=== PATIENT | male | born 1980 | race Caucasian/White ===

== ENCOUNTER 2016-10-08 11:50 | Emergency (ER) | payer OTHER ==
[~2016-10-08] VITALS: Ht 167.6 cm; Wt 100.0 kg
[~2016-10-08 11:50] MED LIST: ADVA250A INH; ALBUAER3 INH; NEXI40CA PO
[2016-10-08 11:53] VITALS: BP 134/82; PULSE 70; RESP 16; TEMP 97.8; O2SAT 97
--- NOTE | 2016-10-08 12:24 | PD ---
HPI Chief Complaint: Cardiac Complaint Time Seen by Provider: 12:24 Travel History International Travel<30 days: No Contact w/Intl Traveler<30days: No Traveled to known affect area: No History of Present Illness HPI 36-year-old male with history of asthma, sleep apnea, hiatal hernia, presents to emergency department for evaluation of chest pain. Patient states the last couple nights he has not been able to breathe while lying flat. He states even gets worse when he is on his left side. He contact his primary care provider who advised that he come to the emergency department. Patient states associated with this there has been an epigastric pain that radiates to his back , primarily on the left side. He has no cardiac history. She does have an uncle with significant cardiac history. No recent illnesses, fever, chills. No other symptoms to report at this time. PFSH Past Medical History Asthma: Yes Hiatal Hernia: Yes Psychiatric: Yes (PTSD) Respiratory: Yes (ASTHMA) Social History Alcohol Use: No (PT DENIES) Tobacco Use: No Substance Use: No (PT DENIES) Allergies-Medications (Allergen,Severity, Reaction): Coded Allergies: Shrimp (Verified Allergy, Severe, Anaphylaxis, 10/08/16) Gluten (Verified Allergy, Intermediate, 10/08/16) abdominal pain Reported Meds & Prescriptions Reported Meds & Active Scripts Active Reported Dicyclomine (Dicyclomine HCl) 10 Mg Cap 10 Mg PO BID Symbicort Inh (Budesonide/Formoterol Fumarate) 80-4.5 Mcg/Act Aero 2 Puff INH DAILY Nexium (Esomeprazole DR) 40 Mg Capdr 40 Mg PO DAILY Proair Hfa 8.5 GM Inh (Albuterol Sulfate) 90 Mcg/Act Aer 1 Puff INH Q4H PRN 108 mcg/actuation Review of Systems Except as stated in HPI: all other systems reviewed are Neg Physical Exam Narrative GENERAL: Well-nourished male patient, ambulatory no acute distress SKIN: Warm and dry. HEAD: Atraumatic. Normocephalic. EYES: Pupils equal and round. No scleral icterus. No injection or drainage. ENT: No nasal bleeding or discharge. Mucous membranes pink and moist. NECK: Trachea midline. No JVD. CARDIOVASCULAR: Regular rate and rhythm. No murmur appreciated. RESPIRATORY: No accessory muscle use. Clear to auscultation. Breath sounds equal bilaterally. GASTROINTESTINAL: Abdomen soft, non-tender, nondistended. Hepatic and splenic margins not palpable. MUSCULOSKELETAL: No obvious deformities. No clubbing. No cyanosis. No edema. NEUROLOGICAL: Awake and alert. No obvious cranial nerve deficits. Motor grossly within normal limits. Normal speech. PSYCHIATRIC: Appropriate mood and affect; insight and judgment normal. Data Data Last Documented VS Vital Signs Date Time Temp Pulse Resp B/P Pulse Ox O2 Delivery O2 Flow Rate FiO2 10/08/16 12:47 60 20 97 Room Air 10/08/16 11:53 97.8 134/82 Orders Electrocardiogram (10/08/16 ) Basic Metabolic Panel (Bmp) (10/08/16 12:21) B-Type Natriuretic Peptide (10/08/16 12:21) Ckmb (Isoenzyme) Profile (10/08/16 12:21) Complete Blood Count With Diff (10/08/16 12:21) D-Dimer (10/08/16 12:21) Magnesium (Mg) (10/08/16 12:21) Prothrombin Time / Inr (Pt) (10/08/16 12:21) Act Partial Throm Time (Ptt) (10/08/16 12:21) Troponin I (10/08/16 12:21) Lipase (10/08/16 12:21) Chest, Single Ap (10/08/16 12:21) Aspirin Chew (Aspirin Chew) (10/08/16 12:30) CKMB (10/08/16 11:20) CKMB% (10/08/16 11:20) Labs Laboratory Tests Test 10/08/16 11:20 White Blood Count 5.2 TH/MM3 Red Blood Count 5.33 MIL/MM3 Hemoglobin 16.0 GM/DL Hematocrit 46.5 % Mean Corpuscular Volume 87.3 FL Mean Corpuscular Hemoglobin 29.9 PG Mean Corpuscular Hemoglobin 34.3 % Concent Red Cell Distribution Width 12.7 % Platelet Count 243 TH/MM3 Mean Platelet Volume 7.4 FL Neutrophils (%) (Auto) 54.1 % Lymphocytes (%) (Auto) 30.3 % Monocytes (%) (Auto) 8.5 % Eosinophils (%) (Auto) 6.2 % Basophils (%) (Auto) 0.9 % Neutrophils # (Auto) 2.8 TH/MM3 Lymphocytes # (Auto) 1.6 TH/MM3 Monocytes # (Auto) 0.4 TH/MM3 Eosinophils # (Auto) 0.3 TH/MM3 Basophils # (Auto) 0.0 TH/MM3 CBC Comment DIFF FINAL Differential Comment Prothrombin Time 10.8 SEC Prothromb Time International 1.0 RATIO Ratio Activated Partial 26.5 SEC Thromboplast Time D-Dimer Quantitative (PE/DVT) LESS THAN 0.19 MG/L FEU Sodium Level 140 MEQ/L Potassium Level 3.8 MEQ/L Chloride Level 105 MEQ/L Carbon Dioxide Level 25.6 MEQ/L Anion Gap 9 MEQ/L Blood Urea Nitrogen 12 MG/DL Creatinine 1.11 MG/DL Estimat Glomerular Filtration 75 ML/MIN Rate Random Glucose 69 MG/DL Calcium Level 9.1 MG/DL Magnesium Level 2.1 MG/DL Total Creatine Kinase 260 U/L Creatine Kinase MB 2.3 NG/ML Troponin I LESS THAN 0.02 NG/ML B-Type Natriuretic Peptide 10 PG/ML Lipase 111 U/L MDM Medical Decision Making Medical Screen Exam Complete: Yes Emergency Medical Condition: Yes Medical Record Reviewed: Yes Differential Diagnosis ACS versus chest wall pain versus indigestion versus pancreatitis versus pneumonia Narrative Course 36-year-old male presents to emergency department for evaluation of chest pain and short is a breath with lying flat and on his left side. Workup was initiated in the triage area. Once a medical bed becomes available, patient will be transferred and care assumed by the provider. Condition: Stable Cathleen Valdovinos Oct 08, 2016 12:24
[2016-10-08] MEDS ORDERED: ASPIRIN 81 MG CHEW TAB PO ONE (12:30)
[2016-10-08 12:36] LABS: AUTOMATED NEUTROPHIL # 2.8 TH/MM3 (1.8-7.7); BASOPHIL % 0.9 % (0.0-2.0); EOSINOPHIL # 0.3 TH/MM3 (0-0.4); EOSINOPHIL % 6.2 % (0.0-4.0); HEMATOCRIT 46.5 % (39.0-51.0); HEMO FLAGS DIFF FINAL; LYMPH % 30.3 % (9.0-44.0); LYMPHOCYTE # 1.6 TH/MM3 (1.0-4.8); MEAN CELL VOLUME 87.3 FL (80.0-100.0); MEAN CORPUSCULAR HEMOGLOBIN 29.9 PG (27.0-34.0); MEAN CORPUSCULAR HGB CONC 34.3 % (32.0-36.0); MONO % 8.5 % (0.0-8.0); NEUT % 54.1 % (16.0-70.0); PLATELET COUNT 243 TH/MM3 (150-450); RED BLOOD COUNT 5.33 MIL/MM3 (4.50-5.90); RED CELL DISTRIBUTION WIDTH 12.7 % (11.6-17.2); WHITE BLOOD COUNT 5.2 TH/MM3 (4.0-11.0)
[2016-10-08] MEDS ORDERED: DICY10CA12 PO (12:46)
[2016-10-08] MEDS ORDERED: SYMB80AE INH (12:46)
[2016-10-08 12:50] VITALS: BP 150/70; PULSE 71; RESP 20; O2SAT 98
[2016-10-08 12:52] LABS: ANION GAP 9 MEQ/L (5-15); BICARBONATE 25.6 MEQ/L (21.0-32.0); BLOOD UREA NITROGEN 12 MG/DL (7-18); CHLORIDE 105 MEQ/L (98-107); GLOMERULAR FILTRATION RATE 75 ML/MIN (>89); MAGNESIUM 2.1 MG/DL (1.5-2.5); POTASSIUM 3.8 MEQ/L (3.5-5.1); SODIUM (NA) 140 MEQ/L (136-145)
[2016-10-08 12:54] LABS: APTT (PATIENT) 26.5 SEC (24.3-30.1); PROTHROMBIN TIME - PATIENT 10.8 SEC (9.8-11.6)
[2016-10-08 13:08] LABS: CREATINE KINASE 260 U/L (39-308)
[2016-10-08 13:21] LABS: CKMB 2.3 NG/ML (0.5-3.6)
--- NOTE | 2016-10-08 13:22 | RADRPT ---
EXAM DATE/TIME: 10/08/2016 12:54 [facility] COMPARISON: No previous studies available for comparison. INDICATIONS : Chest pain, short of breath. MEDICAL HISTORY : None. SURGICAL HISTORY : Hiatal hernia sx. ENCOUNTER: Initial ACUITY: 2 days PAIN SCORE: 5/10 LOCATION: chest FINDINGS: A single view of the chest demonstrates the lungs to be symmetrically aerated without evidence of mas s, infiltrate or effusion. The cardiomediastinal contours are unremarkable. Osseous structures are intact. CONCLUSION: Normal examination. Brooks Martin MD on October 08, 2016 at 13:21 Board Certified Radiologist. This report was verified electronically.
--- NOTE | 2016-10-08 13:26 | PD ---
Physical Exam Narrative 36yo M with PMH of sleep apnea on CPAP machine at night, asthma, hiatal hernia presents to the ED with c/o difficulty breathing when he lies down at night for a few weeks. Had associated chest tightness for a few weeks but mainly here for his sob. Pt had endoscopy and colonscopy 5 days ago that showed mucosal inflammation in stomach where they took biopsy. Pt denies any n/v, fever, abdominal pain, focal weakness or numbness. Pt had seen a director card and a caustic operator last March and had negative cardiac work up. Labs reviewed, no leukocytosis. Troponin negative. Lipase normal. Glucose 69, pt tolerating PO , given juice. D-dimer negative. CXR negative. Pt did have mild epigastric/ LUQ pain but has omeprazole at home and had recent endoscopy that he will follow up with. Pt has caustic operator to follow up with . Pt is nontoxic appearing and saturating at 97% on RA with no retractions. Pt is speaking in complete sentences. Data Data Last Documented VS Vital Signs Date Time Temp Pulse Resp B/P Pulse Ox O2 Delivery O2 Flow Rate FiO2 10/08/16 12:47 60 20 97 Room Air 10/08/16 11:53 97.8 134/82 Orders Electrocardiogram (10/08/16 ) Basic Metabolic Panel (Bmp) (10/08/16 12:21) B-Type Natriuretic Peptide (10/08/16 12:21) Ckmb (Isoenzyme) Profile (10/08/16 12:21) Complete Blood Count With Diff (10/08/16 12:21) D-Dimer (10/08/16 12:21) Magnesium (Mg) (10/08/16 12:21) Prothrombin Time / Inr (Pt) (10/08/16 12:21) Act Partial Throm Time (Ptt) (10/08/16 12:21) Troponin I (10/08/16 12:21) Lipase (10/08/16 12:21) Chest, Single Ap (10/08/16 12:21) Aspirin Chew (Aspirin Chew) (10/08/16 12:30) CKMB (10/08/16 11:20) CKMB% (10/08/16 11:20) Labs Laboratory Tests Test 10/08/16 11:20 White Blood Count 5.2 TH/MM3 Red Blood Count 5.33 MIL/MM3 Hemoglobin 16.0 GM/DL Hematocrit 46.5 % Mean Corpuscular Volume 87.3 FL Mean Corpuscular Hemoglobin 29.9 PG Mean Corpuscular Hemoglobin 34.3 % Concent Red Cell Distribution Width 12.7 % Platelet Count 243 TH/MM3 Mean Platelet Volume 7.4 FL Neutrophils (%) (Auto) 54.1 % Lymphocytes (%) (Auto) 30.3 % Monocytes (%) (Auto) 8.5 % Eosinophils (%) (Auto) 6.2 % Basophils (%) (Auto) 0.9 % Neutrophils # (Auto) 2.8 TH/MM3 Lymphocytes # (Auto) 1.6 TH/MM3 Monocytes # (Auto) 0.4 TH/MM3 Eosinophils # (Auto) 0.3 TH/MM3 Basophils # (Auto) 0.0 TH/MM3 CBC Comment DIFF FINAL Differential Comment Prothrombin Time 10.8 SEC Prothromb Time International 1.0 RATIO Ratio Activated Partial 26.5 SEC Thromboplast Time D-Dimer Quantitative (PE/DVT) LESS THAN 0.19 MG/L FEU Sodium Level 140 MEQ/L Potassium Level 3.8 MEQ/L Chloride Level 105 MEQ/L Carbon Dioxide Level 25.6 MEQ/L Anion Gap 9 MEQ/L Blood Urea Nitrogen 12 MG/DL Creatinine 1.11 MG/DL Estimat Glomerular Filtration 75 ML/MIN Rate Random Glucose 69 MG/DL Calcium Level 9.1 MG/DL Magnesium Level 2.1 MG/DL Total Creatine Kinase 260 U/L Creatine Kinase MB 2.3 NG/ML Troponin I LESS THAN 0.02 NG/ML B-Type Natriuretic Peptide 10 PG/ML Lipase 111 U/L [facility] Supervised Visit with WILLIAN: Yes Interpretation(s) EKG: NSR 70bpm. Normal axis. TWI III. No ST segment elevation or depression. Diagnosis Primary Impression: Sleep apnea Qualified Code: G47.30 - Sleep apnea, unspecified type Patient Instructions: General Instructions Departure Forms: Tests/Procedures Additional Instruction: Please follow up with your caustic operator for further work up of your shortness of breath. Return to the ED if symptoms worsen. Med/Other Pt SpecificInfo: No Change to Meds Disposition: 01 DISCHARGE HOME Condition: Stable Annie Mastjaspreet MEYER Oct 08, 2016 13:26
[2016-10-08 15:18] VITALS: BP 155/72
--- NOTE | 2016-10-09 16:09 | EKG ---
Date Performed: 10/08/2016 Time Performed: 12:18:17 PTAGE: 36 years EKG: Sinus rhythm INCOMPLETE RIGHT BUNDLE BRANCH BLOCK BORDERLINE ECG NO PREVIOUS TRACING DOCTOR: Manny Dickerson Interpretating Date/Time 10/09/2016 16:08:28
== END 2016-10-08 15:19 | disposition home or self-care (01) ==
LOC: NEPA 11:50
DX: G47.30 Sleep apnea, unspecified (principal); R06.02 Shortness of breath; R94.31 Abnormal electrocardiogram [ECG] [EKG]; J45.909 Unspecified asthma, uncomplicated
CPT/HCPCS: 71010; 80048; 82550; 82552; 83690; 83735; 83880; 84484; 85025; 85379; 85610; 85730; 93005

== ENCOUNTER 2018-02-05 13:48 | Emergency (ER) | payer OTHER, MEDICARE ==
[~2018-02-05] VITALS: Ht 167.6 cm; Wt 98.0 kg
[~2018-02-05 13:48] MED LIST changes: -ADVA250A INH; -ALBUAER3 INH; +IBUP1TAB7 PO; -NEXI40CA PO; +PERC7.5T13 PO
[2018-02-05 15:09] VITALS: BP 130/84; PULSE 83; RESP 16; TEMP 97.8; O2SAT 95
[2018-02-05 15:54] LABS: AUTOMATED NEUTROPHIL # 2.7 TH/MM3 (1.8-7.7); BASOPHIL # 0.1 TH/MM3 (0-0.2); BASOPHIL % 0.9 % (0.0-2.0); EOSINOPHIL # 0.4 TH/MM3 (0-0.4); EOSINOPHIL % 8.1 % (0.0-4.0); HEMOGLOBIN 16.3 GM/DL (13.0-17.0); LYMPH % 33.7 % (9.0-44.0); LYMPHOCYTE # 1.8 TH/MM3 (1.0-4.8); MEAN CELL VOLUME 88.3 FL (80.0-100.0); MEAN CORPUSCULAR HEMOGLOBIN 29.9 PG (27.0-34.0); MEAN CORPUSCULAR HGB CONC 33.9 % (32.0-36.0); MEAN PLATELET VOLUME 7.5 FL (7.0-11.0); MONO % 7.4 % (0.0-8.0); MONOCYTE # 0.4 TH/MM3 (0-0.9); NEUT % 49.9 % (16.0-70.0); PLATELET COUNT 287 TH/MM3 (150-450); RED BLOOD COUNT 5.44 MIL/MM3 (4.50-5.90); RED CELL DISTRIBUTION WIDTH 12.9 % (11.6-17.2); WHITE BLOOD COUNT 5.4 TH/MM3 (4.0-11.0)
[2018-02-05 16:07] LABS: ALBUMIN 3.9 GM/DL (3.4-5.0); AST (GOT) 34 U/L (15-37); BICARBONATE 28.5 MEQ/L (21.0-32.0); BLOOD UREA NITROGEN 14 MG/DL (7-18); CALCIUM 9.2 MG/DL (8.5-10.1); CHLORIDE 105 MEQ/L (98-107); CREATININE 1.08 MG/DL (0.60-1.30); GLOMERULAR FILTRATION RATE 77 ML/MIN (>89); GLUCOSE,RANDOM 84 MG/DL (74-106); SODIUM (NA) 141 MEQ/L (136-145)
[2018-02-05 16:08] LABS: ALT (GPT) 56 U/L (12-78)
[2018-02-05 16:10] LABS: ALKALINE PHOSPHATASE 60 U/L (45-117); TOTAL BILIRUBIN ADULT 0.6 MG/DL (0.2-1.0); TOTAL PROTEIN 7.7 GM/DL (6.4-8.2)
[2018-02-05 17:27] LABS: BLOOD, URINE NEG (NEG); GLUCOSE,URINE NEG (NEG); KETONE, URINE NEG (NEG); MUCUS URINE FEW /lpf (OCC); NITRITE,URINE POS (NEG); URINE LEUKOCYTE ESTERASE NEG (NEG)
[2018-02-05 17:32] LABS: URINE COLOR DARK-BROWN (YELLW/STRAW)
[2018-02-05] MEDS ORDERED: PANT40TA3 PO (17:34)
[2018-02-05] MEDS ORDERED: VENTAER INH (17:34)
[2018-02-05] MEDS ORDERED: SYMB80AE INH (17:34)
[2018-02-05 17:38] LABS: BILIRUBIN, URINE NEG (NEG)
[2018-02-05] MEDS ORDERED: KETOROLAC TROMETHAMINE 60 MG/2 ML (IM) VIAL IM ONE (17:45)
--- NOTE | 2018-02-05 18:46 | PD ---
HPI Chief Complaint: Complaint Time Seen by Provider: 17:23 Travel History International Travel<30 days: No Contact w/Intl Traveler<30days: No Traveled to known affect area: No History of Present Illness HPI The patient is a 37-year-old male who presents to the emergency department for right flank pain of 1-1/2 weeks duration. The patient states initially the pain was intermittent, has been constant over the last day. The pain is located over the mid right back and radiates to the right flank and right lower quadrant. He does note the pain is intermittent, sharp, but constant over the last 24 hours. He also complains of dark-colored urine earlier today, possibly with hematuria. He also states that he urinated what he thought was sand-like material. The patient saw his primary physician yesterday who ordered him an outpatient ultrasound. However, he was worried and presents to [facility] for further evaluation. He denies any history nephrolithiasis. He denies any fever, chills, or sweats. He denies any associated nausea, vomiting , diarrhea, change in bowel habits. Symptoms are moderate. PFSH Past Medical History Asthma: Yes Anxiety: Yes Depression: Yes Diminished Hearing: No Hiatal Hernia: Yes Psychiatric: Yes (PTSD) Respiratory: Yes (ASTHMA) Sleep Apnea: Yes (wears cpap at hs) Past Surgical History Abdominal Surgery: Yes (hernia repair) Oral Surgery: Yes (wisdom teeth removal) Other Surgery: Yes (liver bx) Social History Alcohol Use: No Tobacco Use: No Substance Use: No Allergies-Medications (Allergen,Severity, Reaction): Coded Allergies: shrimp (Verified Allergy, Severe, Anaphylaxis, 02/05/18) gluten (Verified Allergy, Intermediate, 02/05/18) abdominal pain Reported Meds & Prescriptions Reported Meds & Active Scripts Active Percocet (Oxycodone-Acetaminophen) 7.5-325 mg Tab 1 Tab PO Q4H PRN Ibuprofen 800 Mg Tab 800 Mg PO TID Reported Symbicort Inh (Budesonide/Formoterol Fumarate) 80-4.5 Mcg/Act Aero 1 Puff INH Q12HR Pantoprazole (Pantoprazole Sodium) 40 Mg Tab 40 Mg PO DAILY Ventolin Hfa 18 GM Inh (Albuterol Sulfate) 90 Mcg/Act Aer 2 Puff INH Q4-6H PRN Review of Systems Except as stated in HPI: all other systems reviewed are Neg General / Constitutional: No: Fever Cardiovascular: No: Chest Pain or Discomfort Respiratory: No: Shortness of Breath Gastrointestinal: No: Nausea, Vomiting, Diarrhea, Abdominal Pain Genitourinary: Positive: Hematuria, Flank Pain Skin: No Rash Physical Exam Narrative GENERAL: Awake, alert, pleasant 37-year-old male who appears his stated age and is in no acute respiratory distress. SKIN: Focused skin assessment warm/dry. No stigmata of shingles over the right flank. HEAD: Atraumatic. Normocephalic. EYES: No injection or drainage. ENT: No nasal bleeding or discharge. Mucous membranes pink and moist. NECK: Trachea midline. No JVD. CARDIOVASCULAR: Regular rate and rhythm. No murmur appreciated. RESPIRATORY: No accessory muscle use. Clear to auscultation. Breath sounds equal bilaterally. GASTROINTESTINAL: Abdomen soft, minimal tenderness right flank. No guarding or rigidity. Back: No CVA tenderness. Genitourinary: Both testicles are descended. No tenderness of the testicle or testicular appendix. No tenderness of the epididymis. No blood at the meatus. MUSCULOSKELETAL: No obvious deformities. No clubbing. No cyanosis. No edema. NEUROLOGICAL: Awake and alert. No obvious cranial nerve deficits. Motor grossly within normal limits. Normal speech. PSYCHIATRIC: Appropriate mood and affect; insight and judgment normal. Data Data Last Documented VS Vital Signs Date Time Temp Pulse Resp B/P (MAP) Pulse Ox O2 Delivery O2 Flow Rate FiO2 02/05/18 15:09 97.8 83 16 130/84 (99) 95 Orders Orders Urinalysis - C+S If Indicated (02/05/18 15:14) Complete Blood Count With Diff (02/05/18 15:14) Comprehensive Metabolic Panel (02/05/18 15:14) Ketorolac Inj (Toradol Inj) (02/05/18 17:45) Ct Abd/Pel W/O Iv Contrast (02/05/18 ) Urine Culture (02/05/18 16:59) Labs Laboratory Tests Test 02/05/18 15:22 02/05/18 16:59 White Blood Count 5.4 TH/MM3 Red Blood Count 5.44 MIL/MM3 Hemoglobin 16.3 GM/DL Hematocrit 48.0 % Mean Corpuscular Volume 88.3 FL Mean Corpuscular Hemoglobin 29.9 PG Mean Corpuscular Hemoglobin Concent 33.9 % Red Cell Distribution Width 12.9 % Platelet Count 287 TH/MM3 Mean Platelet Volume 7.5 FL Neutrophils (%) (Auto) 49.9 % Lymphocytes (%) (Auto) 33.7 % Monocytes (%) (Auto) 7.4 % Eosinophils (%) (Auto) 8.1 % Basophils (%) (Auto) 0.9 % Neutrophils # (Auto) 2.7 TH/MM3 Lymphocytes # (Auto) 1.8 TH/MM3 Monocytes # (Auto) 0.4 TH/MM3 Eosinophils # (Auto) 0.4 TH/MM3 Basophils # (Auto) 0.1 TH/MM3 CBC Comment DIFF FINAL Differential Comment Blood Urea Nitrogen 14 MG/DL Creatinine 1.08 MG/DL Random Glucose 84 MG/DL Total Protein 7.7 GM/DL Albumin 3.9 GM/DL Calcium Level 9.2 MG/DL Alkaline Phosphatase 60 U/L Aspartate Amino Transf (AST/SGOT) 34 U/L Alanine Aminotransferase (ALT/SGPT) 56 U/L Total Bilirubin 0.6 MG/DL Sodium Level 141 MEQ/L Potassium Level 4.1 MEQ/L Chloride Level 105 MEQ/L Carbon Dioxide Level 28.5 MEQ/L Anion Gap 8 MEQ/L Estimat Glomerular Filtration Rate 77 ML/MIN Urine Color DARK-BROWN Urine Turbidity CLEAR Urine pH 6.0 Urine Specific [place] 1.020 Urine Protein NEG mg/dL Urine Glucose (UA) NEG mg/dL Urine Ketones NEG mg/dL Urine Occult Blood NEG Urine Nitrite POS Urine Bilirubin NEG Urine Urobilinogen 4.0 MG/DL Urine Leukocyte Esterase NEG Urine Mucus FEW /lpf Microscopic Urinalysis Comment CULTURE INDICATED MDM Medical Decision Making Medical Screen Exam Complete: Yes Emergency Medical Condition: Yes Medical Record Reviewed: Yes Interpretation(s) Last Impressions Abdomen/Pelvis CT 02/05/18 0000 Impressions: CONCLUSION: 1. No acute findings. Small hiatal hernia. Specifically no renal calculi or ev idence for obstructive uropathy. Laboratory Tests Test 02/05/18 15:22 02/05/18 16:59 White Blood Count 5.4 TH/MM3 Red Blood Count 5.44 MIL/MM3 Hemoglobin 16.3 GM/DL Hematocrit 48.0 % Mean Corpuscular Volume 88.3 FL Mean Corpuscular Hemoglobin 29.9 PG Mean Corpuscular Hemoglobin Concent 33.9 % Red Cell Distribution Width 12.9 % Platelet Count 287 TH/MM3 Mean Platelet Volume 7.5 FL Neutrophils (%) (Auto) 49.9 % Lymphocytes (%) (Auto) 33.7 % Monocytes (%) (Auto) 7.4 % Eosinophils (%) (Auto) 8.1 % Basophils (%) (Auto) 0.9 % Neutrophils # (Auto) 2.7 TH/MM3 Lymphocytes # (Auto) 1.8 TH/MM3 Monocytes # (Auto) 0.4 TH/MM3 Eosinophils # (Auto) 0.4 TH/MM3 Basophils # (Auto) 0.1 TH/MM3 CBC Comment DIFF FINAL Differential Comment Blood Urea Nitrogen 14 MG/DL Creatinine 1.08 MG/DL Random Glucose 84 MG/DL Total Protein 7.7 GM/DL Albumin 3.9 GM/DL Calcium Level 9.2 MG/DL Alkaline Phosphatase 60 U/L Aspartate Amino Transf (AST/SGOT) 34 U/L Alanine Aminotransferase (ALT/SGPT) 56 U/L Total Bilirubin 0.6 MG/DL Sodium Level 141 MEQ/L Potassium Level 4.1 MEQ/L Chloride Level 105 MEQ/L Carbon Dioxide Level 28.5 MEQ/L Anion Gap 8 MEQ/L Estimat Glomerular Filtration Rate 77 ML/MIN Urine Color DARK-BROWN Urine Turbidity CLEAR Urine pH 6.0 Urine Specific [place] 1.020 Urine Protein NEG mg/dL Urine Glucose (UA) NEG mg/dL Urine Ketones NEG mg/dL Urine Occult Blood NEG Urine Nitrite POS Urine Bilirubin NEG Urine Urobilinogen 4.0 MG/DL Urine Leukocyte Esterase NEG Urine Mucus FEW /lpf Microscopic Urinalysis Comment CULTURE INDICATED Differential Diagnosis Differential diagnosis includes hydronephrosis, nephrolithiasis, pyelonephritis , UTI, testicular torsion, epididymitis, atypical appendicitis, shingles. Narrative Course IV was established, labs are drawn and sent, and the patient was placed on cardiac telemetry monitoring and continuous pulse oximetry monitoring. The patient was administered Toradol 60 mg IM. CBC, BMP, and UA were sent to lab. Patient's BUN and creatinine are unremarkable. Patient's laboratory evaluation is unremarkable except for nitrates in the UA, however, the patient has been taking Pyridium. CT the abdomen and pelvis is negative. The patient is stable for outpatient follow-up. He is advised to follow-up with nephrology and/or urology. He will be provided a copy of his CT results and lab results at discharge. Diagnosis Primary Impression: Right flank pain Patient Instructions: General Instructions Additional Instructions: Please provide the patient a copy of his CT results and lab results at discharge. Follow-up with your primary physician. He may benefit from outpatient follow-up with nephrology and/or urology if symptoms persist. Med/Other Pt SpecificInfo: No Change to Meds Disposition: 01 DISCHARGE HOME Condition: Stable Ryan Hughes MD February 05, 2018 18:46
--- NOTE | 2018-02-05 19:08 | RADRPT ---
EXAM DATE: 02/05/2018 7:02 PM EDT AGE/SEX: 37 years / Male INDICATIONS: Intermittent right flank pain for 2 weeks; worsening in the past 3 days with hematuria. CLINICAL DATA: This is the patient's initial encounter. Patient reports that signs and symptoms have been present for 2 weeks and indicates a pain score of 7/10. MEDICAL/SURGICAL HISTORY: Hiatal hernia. None. RADIATION DOSE: 9.96 CTDI (mGy) COMPARISON: [facility], CT ABDOMEN & PELVIS W/O CONTRAST, 08/29/2017. . TECHNIQUE: Multiple contiguous axial images were obtained through the abdomen. Images were obtained using multiple row detector helical technique. Using dose reduction techniques, radiation dose was ke pt as low as reasonably achievable to obtain optimal diagnostic quality images. FINDINGS: Lower Lungs: The visualized lower lungs are clear. Liver: The liver has a homogeneous density without space-occupying lesion. There is no dilation of th e biliary tree. Spleen: Homogeneous density without enlargement. Pancreas: Unremarkable without mass or calcification. Kidneys: Normal in size and shape. No evidence of mass or hydronephrosis. Adrenal Glands: Unremarkable. Aorta: The aorta and proximal iliac vessels are grossly unremarkable without aneurysmal dilation. Bowel/Mesentery: The bowel loops are grossly unremarkable. The cecum and sigmoid colon have a normal configuration. Abdominal Wall: Intact. Retroperitoneum: No evidence of adenopathy in the retrocrural, para-aortic, or deep pelvic regions. Bladder: Contours are smooth. Reproductive Organs: No abnormal masses or calcifications seen. Inguinal: The inguinal region is unremarkable without evidence of adenopathy. Bony Structures: Unremarkable. CONCLUSION: 1. No acute findings. Small hiatal hernia. Specifically no renal calculi or evidence for obstructive uropathy. Electronically signed by: Skip Salinas MD 02/05/2018 7:07 PM EDT
== END 2018-02-05 19:58 | disposition home or self-care (01) ==
LOC: NEPE 13:48
DX: R10.9 Unspecified abdominal pain (principal)
CPT/HCPCS: 74176; 80053; 81001; 85025; 87086; 96372; 99284; J1885